=== PATIENT | female | born 1980 | race American Indian/Alaskan Native ===

== ENCOUNTER 2018-02-07 23:27 | Emergency (ER) | payer MEDICAID ==
[2018-02-07] MEDS ORDERED: BENADRYL ONE (23:41)
[2018-02-07] MEDS ORDERED: SOLU-Medrol ONE (23:41)
[2018-02-07] MEDS ORDERED: PEPCID ONE (23:41)
[2018-02-07] MEDS ORDERED: BENADRYL IV ONE (23:53)
[2018-02-07] MEDS ORDERED: SOLU-Medrol IV ONE (23:53)
[2018-02-07] MEDS ORDERED: PEPCID PO ONE (23:53)
[2018-02-08] MEDS ORDERED: BENADRYL IV ONE (02:54)
[2018-02-08] MEDS ORDERED: BENADRYL ONE (02:58)
[2018-02-08 03:13] VITALS: BP 159/90
[2018-02-08] MEDS ORDERED: NACL 0.9% 1000 ML 1,000 ML IV ONE (03:13)
[2018-02-08] MEDS ORDERED: NACL 0.9% 1000 ML 1,000 ML ONE (03:17)
[2018-02-08] MEDS ORDERED: VISTARIL IM ONE (05:02)
--- NOTE | 2018-02-08 05:49 | Emergency Department Report ---
HPI - General Chief Complaint: Allergic Reaction Time Seen by Provider: 02/08/18 05:34 ED Past Medical Hx - Past Medical History Previous Medical History?: Yes Hx Hypertension: (Pre eclampsia) - Surgical History Past Surgical History?: Yes Additional Surgical History: c secX2 - Social History Smoking Status: Never Smoker Substance Use Type: Alcohol - Medications Home Medications: Home Medications Medication Instructions Recorded Confirmed Last Taken Type Acetaminophen/Codeine [Tylenol #3] 1 tab PO Q6H PRN #20 tab 04/16/15 Unknown Rx Ibuprofen [Motrin 800 MG tab] 800 mg PO Q8H PRN 04/16/15 04/16/15 04/16/15 05: 35 History Sulfamethoxazole/Trimethoprim 1 each PO BID 04/16/15 04/16/15 04/16/15 09:00 History [Bactrim DS TAB] cephALEXin [Keflex] 500 mg PO Q12HR #20 cap 04/16/15 Unknown Rx Clindamycin [Clindamycin CAP] 300 mg PO Q6H #28 capsule 04/21/15 Unknown Rx Prednisone [predniSONE 10 mg 10 mg PO .TAPER #1 tab.ds.pk 04/21/15 Unknown Rx (6-Day Pack, 21 Tabs)] diphenhydrAMINE [Benadryl CAP] 25 mg PO Q6HR PRN #20 capsule 04/21/15 Unknown Rx ED Review of Systems ROS: Stated complaint: REACTION FROM MEDS Other details as noted in HPI Physical Exam - Physical Exam Vital Signs: Vital Signs 02/07/18 02/08/18 23:32 03:12 Temperature 100.4 F H 99.1 F Pulse Rate 111 H 107 H Respiratory 18 19 Rate Blood Pressure 136/90 Blood Pressure 159/90 [Right] O2 Sat by Pulse 96 97 Oximetry ED Course Vital Signs 02/07/18 02/08/18 23:32 03:12 Temperature 100.4 F H 99.1 F Pulse Rate 111 H 107 H Respiratory 18 19 Rate Blood Pressure 136/90 Blood Pressure 159/90 [Right] O2 Sat by Pulse 96 97 Oximetry Critical care attestation.: If time is entered above; I have spent that time in minutes in the direct care of this critically ill patient, excluding procedure time. ED Disposition Condition: Stable Referrals: PRIMARY CARE, [Primary Care Provider] - 3-5 Days
[2018-02-08] MEDS ORDERED: ATIVAN IV ONE (06:11)
--- NOTE | 2018-02-08 06:15 | Emergency Department Report ---
ED General Adult HPI - General Chief complaint: Allergic Reaction Stated complaint: REACTION FROM MEDS Time Seen by Provider: 02/08/18 05:34 Source: patient Mode of arrival: Ambulatory Limitations: No Limitations - History of Present Illness Initial comments: 37-year-old -[place] female comes in for complaint of allergic reaction states that she believes is from her Bactrim. Patient complains of itchiness generalized rash. Patient was recently started on Bactrim for boil that she had. Patient was seen us with urgent care for this. Patient denies any shortness of breathing or chest pain. Patient denies any past medical history besides preeclampsia. -: This evening Location: head, face, chest, back, abdomen, upper extremity, lower extremity Severity scale (0 -10): 3 Quality: other (pruritic) Consistency: intermittent Associated Symptoms: denies: loss of appetite, shortness of breath Treatments Prior to Arrival: none - Related Data Home Medications Medication Instructions Recorded Confirmed Last Taken Ibuprofen [Motrin 800 MG tab] 800 mg PO Q8H PRN 04/16/15 04/16/15 04/16/15 05:35 Sulfamethoxazole/Trimethoprim 1 each PO BID 04/16/15 04/16/15 04/16/15 09:00 [Bactrim DS TAB] Previous Rx's Medication Instructions Recorded Last Taken Type Acetaminophen/Codeine [Tylenol #3] 1 tab PO Q6H PRN #20 tab 04/16/15 Unknown Rx cephALEXin [Keflex] 500 mg PO Q12HR #20 cap 04/16/15 Unknown Rx Clindamycin [Clindamycin CAP] 300 mg PO Q6H #28 capsule 04/21/15 Unknown Rx Prednisone [predniSONE 10 mg 10 mg PO .TAPER #1 tab.ds.pk 04/21/15 Unknown Rx (6-Day Pack, 21 Tabs)] Famotidine [Pepcid] 20 mg PO BID #14 tablet 02/08/18 Unknown Rx Prednisone [predniSONE 10 mg 10 mg PO .TAPER #1 tab.ds.pk 02/08/18 Unknown Rx (6-Day Pack, 21 Tabs)] diphenhydrAMINE [Benadryl CAP] 25 mg PO Q6HR PRN #20 capsule 02/08/18 Unknown Rx Allergies Allergy/AdvReac Type Severity Reaction Status Date / Time No Known Allergies Allergy Unverified 04/16/15 10:52 ED Review of Systems ROS: Stated complaint: REACTION FROM MEDS Other details as noted in HPI Comment: All other systems reviewed and negative Skin: rash ED Past Medical Hx - Past Medical History Previous Medical History?: Yes Hx Hypertension: (Pre eclampsia) - Surgical History Past Surgical History?: Yes Additional Surgical History: c secX2 - Social History Smoking Status: Never Smoker Substance Use Type: Alcohol - Medications Home Medications: Home Medications Medication Instructions Recorded Confirmed Last Taken Type Acetaminophen/Codeine [Tylenol #3] 1 tab PO Q6H PRN #20 tab 04/16/15 Unknown Rx Ibuprofen [Motrin 800 MG tab] 800 mg PO Q8H PRN 04/16/15 04/16/15 04/16/15 05: 35 History Sulfamethoxazole/Trimethoprim 1 each PO BID 04/16/15 04/16/15 04/16/15 09:00 History [Bactrim DS TAB] cephALEXin [Keflex] 500 mg PO Q12HR #20 cap 04/16/15 Unknown Rx Clindamycin [Clindamycin CAP] 300 mg PO Q6H #28 capsule 04/21/15 Unknown Rx Prednisone [predniSONE 10 mg 10 mg PO .TAPER #1 tab.ds.pk 04/21/15 Unknown Rx (6-Day Pack, 21 Tabs)] Famotidine [Pepcid] 20 mg PO BID #14 tablet 02/08/18 Unknown Rx Prednisone [predniSONE 10 mg 10 mg PO .TAPER #1 tab.ds.pk 02/08/18 Unknown Rx (6-Day Pack, 21 Tabs)] diphenhydrAMINE [Benadryl CAP] 25 mg PO Q6HR PRN #20 capsule 02/08/18 Unknown Rx ED Physical Exam - General Limitations: No Limitations General appearance: alert, in no apparent distress, anxious - Head Head exam: Present: atraumatic, normocephalic - Eye Eye exam: Present: EOMI - ENT ENT exam: Present: mucous membranes moist - Respiratory Respiratory exam: Present: normal lung sounds bilaterally. Absent: respiratory distress - Cardiovascular Cardiovascular Exam: Present: tachycardia - GI/Abdominal GI/Abdominal exam: Present: soft, normal bowel sounds - Back Exam Back exam: Present: full ROM - Neurological Exam Neurological exam: Present: alert, oriented X3 - Psychiatric Psychiatric exam: Present: normal affect, normal mood - Expanded Skin Exam Expanded Type of lesion: Present: rash Distribution of rash: generalized Description of rash: Present: erythematous, papular, purpuic ED Course Vital Signs 02/07/18 02/08/18 23:32 03:12 Temperature 100.4 F H 99.1 F Pulse Rate 111 H 107 H Respiratory 18 19 Rate Blood Pressure 136/90 Blood Pressure 159/90 [Right] O2 Sat by Pulse 96 97 Oximetry ED Medical Decision Making - Medical Decision Making Patient has been evaluated by this provider fast track. Patient was given Solu-Medrol 125 mg and Benadryl 50 mg IV Pepcid 20 mg by mouth Patient's rash persist in fast track with no resolution patient was seen given another dose of Benadryl 50 mg IV 1 L of normal saline still no resolution patient was given Atarax 50 mg by mouth. Rash agitation persist patient is given Ativan 1 mg IV. Will discharge patient home on prednisone pack 10 mg. As well as Pepcid 20 mg by mouth and Atarax 25 mg every 6 hours when necessary. Diagnosis with sulfur allergic reaction. Critical care attestation.: If time is entered above; I have spent that time in minutes in the direct care of this critically ill patient, excluding procedure time. ED Disposition Disposition: DC-01 TO HOME OR SELFCARE Is pt being admited?: No Does the pt Need Aspirin: No Condition: Stable Instructions: Urticaria (ED), Antibiotic Medication Allergy (ED) Additional Instructions: Please take medication that has been prescribed to you. Please avoid using any sulfa medication. If her symptoms worsen please return back to the emergency room immediately. Prescriptions: diphenhydrAMINE [Benadryl CAP] 25 mg PO Q6HR PRN #20 capsule PRN Reason: Rash Famotidine [Pepcid] 20 mg PO BID #14 tablet Prednisone [predniSONE 10 mg (6-Day Pack, 21 Tabs)] 10 mg PO .TAPER #1 tab.ds.pk Referrals: PRIMARY CARE, [Primary Care Provider] - 3-5 Days [facility] [Provider Group] - 3-5 Days Forms: Work/School Release Form(ED)
== END 2018-02-08 07:26 | disposition home or self-care (01) ==
LOC: ED 23:27
DX: T49.4X5A Adverse effect of keratolytics, keratoplastics, and other hair treatment drugs and preparations, initial encounter (principal); Y92.89 Other specified places as the place of occurrence of the external cause
CPT/HCPCS: 96372; 96374; 96375; 96376; 99282; J1200; J2060; J2930; J3410; J7030

== ENCOUNTER 2021-12-24 14:54 | Emergency (ER) | payer MEDICAID ==
[2021-12-24 15:40] VITALS: BP 126/76
--- NOTE | 2021-12-24 15:51 | Emergency Department Report ---
- General Chief complaint: Skin/Abscess/Foreign Body Stated complaint: 18 WKS PREG BLEEDING Time Seen by Provider: 12/24/21 15:43 Source: patient Mode of arrival: Ambulatory Limitations: No Limitations - Related Data Home Medications Medication Instructions Recorded Confirmed Last Taken Ibuprofen [Motrin 800 MG tab] 800 mg PO Q8H PRN 04/16/15 04/16/15 04/16/15 05:35 Sulfamethoxazole/Trimethoprim 1 each PO BID 04/16/15 04/16/15 04/16/15 09:00 [Bactrim DS TAB] Previous Rx's Medication Instructions Recorded Last Taken Type Acetaminophen/Codeine [Tylenol #3] 1 tab PO Q6H PRN #20 tab 04/16/15 Unknown Rx cephALEXin [Keflex] 500 mg PO Q12HR #20 cap 04/16/15 Unknown Rx Clindamycin [Clindamycin CAP] 300 mg PO Q6H #28 capsule 04/21/15 Unknown Rx Prednisone [predniSONE 10 mg 10 mg PO .TAPER #1 tab.ds.pk 04/21/15 Unknown Rx (6-Day Pack, 21 Tabs)] Famotidine [Pepcid] 20 mg PO BID #14 tablet 02/08/18 Unknown Rx Prednisone [predniSONE 10 mg 10 mg PO .TAPER #1 tab.ds.pk 02/08/18 Unknown Rx (6-Day Pack, 21 Tabs)] diphenhydrAMINE [Benadryl CAP] 25 mg PO Q6HR PRN #20 capsule 02/08/18 Unknown Rx Allergies Allergy/AdvReac Type Severity Reaction Status Date / Time Sulfa (Sulfonamide Allergy Hives Verified 02/08/18 06:15 Antibiotics) Abscess Boil HPI - HPI Chief Complaint: Skin/Abscess/Foreign Body Stated Complaint: 18 WKS PREG BLEEDING Time Seen by Provider: 12/24/21 15:43 Home Medications: Home Medications Medication Instructions Recorded Confirmed Last Taken Ibuprofen [Motrin 800 MG tab] 800 mg PO Q8H PRN 04/16/15 04/16/15 04/16/15 05:35 Sulfamethoxazole/Trimethoprim 1 each PO BID 04/16/15 04/16/15 04/16/15 09:00 [Bactrim DS TAB] Previous Rx's Medication Instructions Recorded Last Taken Type Acetaminophen/Codeine [Tylenol #3] 1 tab PO Q6H PRN #20 tab 04/16/15 Unknown Rx cephALEXin [Keflex] 500 mg PO Q12HR #20 cap 04/16/15 Unknown Rx Clindamycin [Clindamycin CAP] 300 mg PO Q6H #28 capsule 04/21/15 Unknown Rx Prednisone [predniSONE 10 mg 10 mg PO .TAPER #1 tab.ds.pk 04/21/15 Unknown Rx (6-Day Pack, 21 Tabs)] Famotidine [Pepcid] 20 mg PO BID #14 tablet 02/08/18 Unknown Rx Prednisone [predniSONE 10 mg 10 mg PO .TAPER #1 tab.ds.pk 02/08/18 Unknown Rx (6-Day Pack, 21 Tabs)] diphenhydrAMINE [Benadryl CAP] 25 mg PO Q6HR PRN #20 capsule 02/08/18 Unknown Rx Allergies/Adverse Reactions: Allergies Allergy/AdvReac Type Severity Reaction Status Date / Time Sulfa (Sulfonamide Allergy Hives Verified 02/08/18 06:15 Antibiotics) ED Review of Systems ROS: Stated complaint: 18 WKS PREG BLEEDING Other details as noted in HPI ED Past Medical Hx - Past Medical History Previous Medical History?: No Hx Hypertension: (Pre eclampsia) - Surgical History Hx Cholecystectomy: Yes Additional Surgical History: c secX2 - Social History Smoking Status: Never Smoker - Medications Home Medications: Home Medications Medication Instructions Recorded Confirmed Last Taken Type Acetaminophen/Codeine [Tylenol #3] 1 tab PO Q6H PRN #20 tab 04/16/15 Unknown Rx Ibuprofen [Motrin 800 MG tab] 800 mg PO Q8H PRN 04/16/15 04/16/15 04/16/15 05:35 History Sulfamethoxazole/Trimethoprim 1 each PO BID 04/16/15 04/16/15 04/16/15 09:00 History [Bactrim DS TAB] cephALEXin [Keflex] 500 mg PO Q12HR #20 cap 04/16/15 Unknown Rx Clindamycin [Clindamycin CAP] 300 mg PO Q6H #28 capsule 04/21/15 Unknown Rx Prednisone [predniSONE 10 mg 10 mg PO .TAPER #1 tab.ds.pk 04/21/15 Unknown Rx (6-Day Pack, 21 Tabs)] Famotidine [Pepcid] 20 mg PO BID #14 tablet 02/08/18 Unknown Rx Prednisone [predniSONE 10 mg 10 mg PO .TAPER #1 tab.ds.pk 02/08/18 Unknown Rx (6-Day Pack, 21 Tabs)] diphenhydrAMINE [Benadryl CAP] 25 mg PO Q6HR PRN #20 capsule 02/08/18 Unknown Rx ED Physical Exam - General Limitations: No Limitations ED Course Vital Signs 12/24/21 15:36 Temperature 98.9 F Pulse Rate 82 Respiratory 14 Rate Blood Pressure 126/76 O2 Sat by Pulse 98 Oximetry Critical care attestation.: If time is entered above; I have spent that time in minutes in the direct care of this critically ill patient, excluding procedure time. ED Disposition Condition: Stable
== END 2021-12-24 19:00 | disposition left against medical advice (07) ==
LOC: ED 14:54
DX: O20.9 Hemorrhage in early pregnancy, unspecified (principal); Z3A.18 18 weeks gestation of pregnancy; Z53.21 Procedure and treatment not carried out due to patient leaving prior to being seen by health care provider